=== PATIENT | male | born 1950 | race Caucasian/White ===

== ENCOUNTER 2017-09-18 20:53 | Inpatient (IN) | payer MEDICARE, OTHER ==
[2017-09-18 21:35] LABS: ADD MAN DIFF? NO
[2017-09-18] MEDS: SOD CHLORIDE 0.9% 500 ML IV (21:35)
[2017-09-18] MEDS: morphine 4 MG/ML VIAL IV (21:35)
[2017-09-18] MEDS: KETOROLAC 30 MG INJ IV (21:35)
[2017-09-18] MEDS: METHYLPREDNISOLONE 125 MG INJ IV (21:35)
[2017-09-18 21:36] LABS: BASOPHILS % 0.5 % (0.0-2.0); EOSINOPHILS # 0.4 10^3/ul (0.0-0.5); EOSINOPHILS % 6.9 % (0.0-7.0); HEMATOCRIT 46.9 % (42.0-52.0); HEMOGLOBIN 15.4 g/dl (14.0-18.0); LYMPHOCYTES # 1.9 10^3/ul (0.8-2.9); LYMPHOCYTES % 31.4 % (15.0-51.0); MEAN CORPUSCULAR HEMOGLOBIN 31.7 pg (29.0-33.0); MEAN CORPUSCULAR HGB CONC 32.8 g/dl (32.0-37.0); MEAN CORPUSCULAR VOLUME 96.5 fl (82.0-101.0); MEAN PLATELET VOLUME 9.8 fl (7.4-10.4); MONOCYTE # 0.3 10^3/ul (0.3-0.9); MONOCYTES % 4.4 % (0.0-11.0); NEUTROPHIL # 3.4 10^3/ul (1.6-7.5); NEUTROPHILS % 56.6 % (39.0-77.0); PLATELET COUNT 319 10^3/UL (140-415); RED BLOOD COUNT 4.86 10^6/ul (4.70-6.10); RED CELL DISTRIBUTION WIDTH 13.6 % (11.5-14.5)
[2017-09-18 21:53] LABS: ANION GAP 10 (8-16); BLOOD UREA NITROGEN 19 mg/dl (7-20); CALCIUM 9.4 mg/dl (8.4-10.2); CARBON DIOXIDE 30 mmol/L (21-31); CHLORIDE 107 mmol/L (97-110); CREATININE 1.08 mg/dl (0.61-1.24); GLUCOSE 103 mg/dl (70-220); POTASSIUM 3.6 mmol/L (3.5-5.1); SODIUM 143 mmol/L (135-144)
[2017-09-18] MEDS: HYDROmorphONE 0.5 MG/0.5 ML SYG IV ×2 (21:56→23:36)
[2017-09-18 22:05] LABS: TROPONIN-I < 0.010 ng/ml (0.000-0.120)
[2017-09-18 22:51] LABS: ADD UMIC YES; UR ASCORBIC ACID NEGATIVE (NEGATIVE); UR BACTERIA FEW /HPF (NONE SEEN); UR BILIRUBIN (Dip) NEGATIVE (NEGATIVE); UR BLOOD (Dip) 2+ mg/dL (NEGATIVE); UR CLARITY CLOUDY (CLEAR); UR COLOR YELLOW (YELLOW); UR GLUCOSE (Dip) NEGATIVE (NEGATIVE); UR HYALINE CAST FEW /HPF (NONE SEEN); UR KETONES (Dip) NEGATIVE (NEGATIVE); UR LEUKOCYTE ESTERASE (Dip) 3+ Leu/ul (NEGATIVE); UR MUCUS FEW /HPF (NONE SEEN); UR NITRITE (Dip) POSITIVE (NEGATIVE); UR RBC 56 /HPF (0-5); UR SPECIFIC GRAVITY (Dip) 1.014 (1.003-1.030); UR TOTAL PROTEIN (Dip) 1+ mg/dl (NEGATIVE); UR UROBILINOGEN (Dip) 2+ mg/dL (NEGATIVE); UR WBC 87 /HPF (0-5)
[2017-09-18] MEDS: CEFEPIME 1GM/50 ML (PMX) 50 ML IVPB (23:37)
[2017-09-19] MEDS ORDERED: ACETAMINOPHEN 325 MG TAB PO
[2017-09-19] MEDS ORDERED: NACL 0.9% 3 ML SYG IV
[2017-09-19] MEDS ORDERED: ALBUTEROL/IPRATROPIUM (NEB) 3 ML AMP HHN
[2017-09-19] MEDS ORDERED: ONDANSETRON 4 MG INJ IV
[2017-09-19] MEDS: morphine 2 MG INJ IV ×4 (00:55→18:02)
[2017-09-19] MEDS: HYDROCODONE/APAP (5/325) TAB PO ×2 (01:51→07:47)
[2017-09-19 05:44] LABS: WHITE BLOOD COUNT 4.5 10^3/ul (4.8-10.8)
[2017-09-19 05:44] LABS: HEMOGLOBIN 14.9 g/dl (14.0-18.0); MEAN CORPUSCULAR HEMOGLOBIN 31.6 pg (29.0-33.0); MEAN CORPUSCULAR HGB CONC 32.4 g/dl (32.0-37.0); MEAN CORPUSCULAR VOLUME 97.5 fl (82.0-101.0); PLATELET COUNT 295 10^3/UL (140-415); POSITIVE DIFF @See below; RED BLOOD COUNT 4.72 10^6/ul (4.70-6.10); RED CELL DISTRIBUTION WIDTH 13.4 % (11.5-14.5)
[2017-09-19 05:53] LABS: ADD MAN DIFF? YES
[2017-09-19 06:09] LABS: ALANINE AMINOTRANSFERASE 15 IU/L (13-69); ALBUMIN 3.5 g/dl (3.3-4.9); ALBUMIN/GLOBULIN RATIO 1.02; ALKALINE PHOSPHATASE 94 IU/L (42-121); ASPARTATE AMINO TRANSFERASE 15 IU/L (15-46); BILIRUBIN,INDIRECT 0.2 mg/dl (0-1.1); BILIRUBIN,TOTAL 0.2 mg/dl (0.2-1.3); BLOOD UREA NITROGEN 23 mg/dl (7-20); CALCIUM 9.2 mg/dl (8.4-10.2); CARBON DIOXIDE 26 mmol/L (21-31); CHLORIDE 110 mmol/L (97-110); CREATININE 1.09 mg/dl (0.61-1.24); GLUCOSE 148 mg/dl (70-220); MAGNESIUM 2.2 mg/dl (1.7-2.5); PHOSPHORUS 4.5 mg/dl (2.5-4.9); SODIUM 143 mmol/L (135-144); TOTAL PROTEIN 6.9 g/dl (6.1-8.1)
[2017-09-19 06:37] LABS: ANION GAP 11 (8-16)
[2017-09-19 06:40] LABS: POTASSIUM 4.3 mmol/L (3.5-5.1)
[2017-09-19 07:45] LABS: BAND NEUTROPHILS % (M) 1 % (0-4); LYMPHOCYTES #M 0.9 10^3/ul (0.8-2.9); LYMPHOCYTES % (M) 20 % (15-51); PLATELET ESTIMATE NORMAL; SEG NEUT #M 3.6 10^3/ul (1.6-7.5); SEGMENTED NEUTROPHILS (M) % 79 % (39-77)
[2017-09-19] MEDS: CEFTAZIDIME 1GM/50 ML (PMX) 50 ML IVPB (08:33)
[2017-09-19] MEDS: METHYLPREDNISOLONE 125 MG INJ IV (08:33)
[2017-09-19] MEDS: morphine LIQ (10 MG/5 ML) CUP PO (08:46)
[2017-09-19] MEDS: HYDROmorphONE 1 MG/ML SYG IV (11:15)
[2017-09-19] MEDS ORDERED: morphine LIQ (10 MG/5 ML) CUP PO (18:30)
== END 2017-09-19 19:15 | disposition home or self-care (01) | DRG 59 ==
LOC: E/R 20:53 → PP2 23:51
DX: G35 Multiple sclerosis (principal); N39.0 Urinary tract infection, site not specified; G83.9 Paralytic syndrome, unspecified
CPT/HCPCS: 36415; 70450; 71045; 80048; 80053; 81001; 83735; 84100; 84443; 84484; 85025; 87086; 93005; 96374; 96375; 96376; 99285-25

== ENCOUNTER 2017-09-24 16:05 | Emergency (ER) | payer MEDICARE ==
[2017-09-24] MEDS: HYDROmorphONE 1 MG/ML SYG IV (16:33)
[2017-09-24] MEDS: DIPHTH/TET/ACEL PERTUSS (ADULT) 0.5 ML VIAL IM* (16:33)
[2017-09-24 16:47] LABS: ADD MAN DIFF? NO
[2017-09-24 16:53] LABS: BASOPHILS % 0.3 % (0.0-2.0); EOSINOPHILS # 0.2 10^3/ul (0.0-0.5); EOSINOPHILS % 3.8 % (0.0-7.0); HEMATOCRIT 47.9 % (42.0-52.0); HEMOGLOBIN 15.2 g/dl (14.0-18.0); LYMPHOCYTES # 1.2 10^3/ul (0.8-2.9); MEAN CORPUSCULAR HEMOGLOBIN 31.1 pg (29.0-33.0); MEAN CORPUSCULAR HGB CONC 31.7 g/dl (32.0-37.0); MEAN PLATELET VOLUME 10.4 fl (7.4-10.4); MONOCYTE # 0.3 10^3/ul (0.3-0.9); MONOCYTES % 4.8 % (0.0-11.0); NEUTROPHIL # 4.3 10^3/ul (1.6-7.5); NEUTROPHILS % 70.8 % (39.0-77.0); PLATELET COUNT 258 10^3/UL (140-415); RED BLOOD COUNT 4.89 10^6/ul (4.70-6.10); RED CELL DISTRIBUTION WIDTH 13.5 % (11.5-14.5)
[2017-09-24 17:12] LABS: INR 0.94; PARTIAL THROMBOPLASTIN TIME 28.8 Sec (25.0-35.0); PROTIME 12.7 Sec (11.9-14.9)
[2017-09-24 17:16] LABS: ANION GAP 11 (8-16); BLOOD UREA NITROGEN 20 mg/dl (7-20); CALCIUM 9.6 mg/dl (8.4-10.2); CARBON DIOXIDE 29 mmol/L (21-31); CHLORIDE 103 mmol/L (97-110); CREATININE 0.98 mg/dl (0.61-1.24); GLUCOSE 114 mg/dl (70-220); POTASSIUM 3.4 mmol/L (3.5-5.1); SODIUM 140 mmol/L (135-144)
== END 2017-09-24 21:10 | disposition home or self-care (01) ==
LOC: E/R 21:10
DX: S43.402A Unspecified sprain of left shoulder joint, initial encounter (principal); S50.812A Abrasion of left forearm, initial encounter; S23.8XXA Sprain of other specified parts of thorax, initial encounter; I10 Essential (primary) hypertension; I50.9 Heart failure, unspecified; V00.831A Fall from motorized mobility scooter, initial encounter; Y92.9 Unspecified place or not applicable; Z87.891 Personal history of nicotine dependence; Z23 Encounter for immunization
CPT/HCPCS: 36415; 71045; 72170; 73030; 73080-LT; 73562; 80048; 85025; 85610; 85730; 90471; 90715; 96374; 99284-25

== ENCOUNTER 2017-10-15 03:36 | Inpatient (IN) | payer MEDICARE ==
[2017-10-15 03:54] LABS: AADO2 Arterial 117.2 mmHg (7.0-24.0); Allen Test ACCEPTAB; Arterial Base Excess -0.1 mmol/L (-3.0-3); Arterial Blood Gas Oxygen Sat 95.6 mmHG (95.0-98.0); Arterial COHb 4.3 % (0.0-3.0); Arterial Fraction of Oxyhgb 91.2 % (93.0-99.0); Arterial HCO3 24.2 mmol/L (22.0-26.0); Arterial MetHb 0.3 % (0.0-1.5); Arterial Total Hemglobin 16.8 g/dl (12.0-18.0); Arterial pCO2 38.5 mmhg (35-45); MODE NASAL CANNULA; Site Left Radial
[2017-10-15 04:00] LABS: ADD MAN DIFF? NO
[2017-10-15 04:05] LABS: BASOPHIL # 0.1 10^3/ul (0.0-0.1); BASOPHILS % 0.6 % (0.0-2.0); EOSINOPHILS # 0.3 10^3/ul (0.0-0.5); EOSINOPHILS % 3.8 % (0.0-7.0); HEMATOCRIT 49.6 % (42.0-52.0); HEMOGLOBIN 16.2 g/dl (14.0-18.0); LYMPHOCYTES # 2.7 10^3/ul (0.8-2.9); LYMPHOCYTES % 33.5 % (15.0-51.0); MEAN CORPUSCULAR HEMOGLOBIN 31.1 pg (29.0-33.0); MEAN CORPUSCULAR HGB CONC 32.7 g/dl (32.0-37.0); MEAN CORPUSCULAR VOLUME 95.2 fl (82.0-101.0); MEAN PLATELET VOLUME 9.7 fl (7.4-10.4); MONOCYTE # 0.4 10^3/ul (0.3-0.9); MONOCYTES % 4.7 % (0.0-11.0); NEUTROPHIL # 4.5 10^3/ul (1.6-7.5); PLATELET COUNT 356 10^3/UL (140-415); RED BLOOD COUNT 5.21 10^6/ul (4.70-6.10)
[2017-10-15] MEDS: HYDROmorphONE 0.5 MG/0.5 ML SYG IV ×2 (04:19→04:53)
[2017-10-15 04:20] LABS: INR 1.02; PROTIME 13.5 Sec (11.9-14.9); PT RATIO 1.1
[2017-10-15 04:21] LABS: LACTIC ACID 0.9 mmol/L (0.5-2.0)
[2017-10-15 04:22] LABS: ALANINE AMINOTRANSFERASE 25 IU/L (13-69); ALBUMIN 3.4 g/dl (3.3-4.9); ALKALINE PHOSPHATASE 118 IU/L (42-121); ANION GAP 12 (8-16); ASPARTATE AMINO TRANSFERASE 15 IU/L (15-46); BILIRUBIN,INDIRECT 0.4 mg/dl (0-1.1); BILIRUBIN,TOTAL 0.4 mg/dl (0.2-1.3); BLOOD UREA NITROGEN 13 mg/dl (7-20); CALCIUM 9.1 mg/dl (8.4-10.2); CARBON DIOXIDE 24 mmol/L (21-31); CHLORIDE 112 mmol/L (97-110); CREATININE 0.95 mg/dl (0.61-1.24); GLUCOSE 97 mg/dl (70-220); POTASSIUM 3.8 mmol/L (3.5-5.1); SODIUM 144 mmol/L (135-144); TOTAL PROTEIN 6.8 g/dl (6.1-8.1)
[2017-10-15 04:33] LABS: TROPONIN-I < 0.010 ng/ml (0.000-0.120)
[2017-10-15 05:29] LABS: ADD UMIC YES; UR ASCORBIC ACID NEGATIVE (NEGATIVE); UR BACTERIA FEW /HPF (NONE SEEN); UR BILIRUBIN (Dip) NEGATIVE (NEGATIVE); UR BLOOD (Dip) 2+ mg/dL (NEGATIVE); UR CLARITY TURBID (CLEAR); UR COLOR YELLOW (YELLOW); UR GLUCOSE (Dip) NEGATIVE (NEGATIVE); UR KETONES (Dip) NEGATIVE (NEGATIVE); UR LEUKOCYTE ESTERASE (Dip) 3+ Leu/ul (NEGATIVE); UR MUCUS MODERATE /HPF (NONE SEEN); UR NITRITE (Dip) POSITIVE (NEGATIVE); UR NONSQUAMOUS EPITHELIAL CELL 3 /HPF (NONE SEEN); UR RBC 22 /HPF (0-5); UR SPECIFIC GRAVITY (Dip) 1.011 (1.003-1.030); UR TOTAL PROTEIN (Dip) 1+ mg/dl (NEGATIVE); UR UROBILINOGEN (Dip) NEGATIVE (NEGATIVE); UR WBC > 182 /HPF (0-5)
[2017-10-15] MEDS: PIPER-TAZO 3.375 GM IV (PMX) 100 ML IVPB (06:00)
[2017-10-15 06:04] LABS: URINE BLOOD (Dip) POC 2+ (NEGATIVE); URINE GLUCOSE (Dip) POC Negative (NEGATIVE); URINE KETONES (Dip) POC Negative (NEGATIVE); URINE LEUKOCYTE EST (Dip) POC Trace (NEGATIVE); URINE NITRITE (Dip) POC Positive (NEGATIVE); URINE TOTAL PROTEIN POC 3+ (NEGATIVE)
[2017-10-15 06:28] LABS: LACTIC ACID 1.1 mmol/L (0.5-2.0)
[2017-10-15] MEDS ORDERED: NACL 0.9% 3 ML SYG IV (11:30)
[2017-10-15] MEDS ORDERED: ALBUTEROL 0.083% (NEB) 2.5 MG/3 ML AMP HHN (12:00)
[2017-10-15] MEDS: ONDANSETRON 4 MG INJ IV (13:44)
[2017-10-15] MEDS: morphine 2 MG INJ IV ×2 (13:48→17:49)
[2017-10-15] MEDS ORDERED: NAPROXEN 500 MG TAB PO (20:00)
[2017-10-15] MEDS: MIRTAZAPINE 15 MG TAB PO (21:00)
[2017-10-15] MEDS: DOCUSATE SODIUM 250 MG CAP PO (21:00)
[2017-10-15] MEDS: BACLOFEN 10 MG TAB PO (21:00)
[2017-10-15] MEDS: DIAZEPAM 5 MG TAB PO (21:00)
[2017-10-15] MEDS: GABAPENTIN 300 MG CAP PO (21:01)
[2017-10-15] MEDS: TAMSULOSIN (SR) 0.4 MG CAP PO (21:01)
[2017-10-15] MEDS: HYDROmorphONE 4 MG TAB PO (23:45)
[2017-10-16] MEDS: HYDROmorphONE 4 MG TAB PO ×3 (06:06→15:08)
[2017-10-16] MEDS: DOCUSATE SODIUM 250 MG CAP PO ×2 (09:01→21:42)
[2017-10-16] MEDS: GABAPENTIN 300 MG CAP PO ×3 (09:01→21:42)
[2017-10-16] MEDS: FOLIC ACID 1 MG TAB PO (09:01)
[2017-10-16] MEDS: BACLOFEN 10 MG TAB PO ×4 (09:01→21:42)
[2017-10-16] MEDS: DIAZEPAM 5 MG TAB PO ×2 (09:01→21:46)
[2017-10-16] MEDS: FUROSEMIDE 20 MG TAB PO (09:02)
[2017-10-16] MEDS: TAMSULOSIN (SR) 0.4 MG CAP PO (21:42)
[2017-10-16] MEDS: MIRTAZAPINE 15 MG TAB PO (21:42)
[2017-10-17] MEDS: BACLOFEN 10 MG TAB PO ×4 (08:07→20:21)
[2017-10-17] MEDS: GABAPENTIN 300 MG CAP PO ×3 (08:07→20:20)
[2017-10-17] MEDS: DIAZEPAM 5 MG TAB PO ×2 (08:08→20:21)
[2017-10-17] MEDS: FOLIC ACID 1 MG TAB PO (08:08)
[2017-10-17] MEDS: DOCUSATE SODIUM 250 MG CAP PO ×2 (08:08→20:20)
[2017-10-17] MEDS: FUROSEMIDE 20 MG TAB PO (08:08)
[2017-10-17 11:10] LABS: ADD MAN DIFF? NO
[2017-10-17 11:13] LABS: BASOPHILS % 0.6 % (0.0-2.0); EOSINOPHILS # 0.1 10^3/ul (0.0-0.5); EOSINOPHILS % 2.6 % (0.0-7.0); HEMATOCRIT 44.5 % (42.0-52.0); HEMOGLOBIN 14.2 g/dl (14.0-18.0); LYMPHOCYTES % 39.4 % (15.0-51.0); MEAN CORPUSCULAR HEMOGLOBIN 30.5 pg (29.0-33.0); MEAN CORPUSCULAR HGB CONC 31.9 g/dl (32.0-37.0); MEAN CORPUSCULAR VOLUME 95.7 fl (82.0-101.0); MEAN PLATELET VOLUME 9.8 fl (7.4-10.4); MONOCYTE # 0.2 10^3/ul (0.3-0.9); MONOCYTES % 4.8 % (0.0-11.0); NEUTROPHIL # 2.6 10^3/ul (1.6-7.5); NEUTROPHILS % 52.4 % (39.0-77.0); PLATELET COUNT 290 10^3/UL (140-415); RED BLOOD COUNT 4.65 10^6/ul (4.70-6.10); RED CELL DISTRIBUTION WIDTH 13.9 % (11.5-14.5)
[2017-10-17 11:34] LABS: ANION GAP 10 (8-16); BLOOD UREA NITROGEN 16 mg/dl (7-20); CALCIUM 8.9 mg/dl (8.4-10.2); CARBON DIOXIDE 24 mmol/L (21-31); CHLORIDE 113 mmol/L (97-110); CREATININE 0.84 mg/dl (0.61-1.24); GLUCOSE 100 mg/dl (70-220); POTASSIUM 3.7 mmol/L (3.5-5.1); SODIUM 143 mmol/L (135-144)
[2017-10-17] MEDS: CEFTRIAXONE 1 GM/50 ML (PMX) 50 ML IVPB (12:52)
[2017-10-17] MEDS: HYDROmorphONE 4 MG TAB PO ×2 (14:58→22:57)
[2017-10-17] MEDS: MIRTAZAPINE 15 MG TAB PO (20:21)
[2017-10-17] MEDS: TAMSULOSIN (SR) 0.4 MG CAP PO (20:21)
[2017-10-18] MEDS: HYDROmorphONE 4 MG TAB PO ×2 (05:54→16:29)
[2017-10-18 07:30] LABS: ADD MAN DIFF? NO
[2017-10-18 07:44] LABS: WHITE BLOOD COUNT 5.2 10^3/ul (4.8-10.8)
[2017-10-18 07:44] LABS: BASOPHILS % 0.6 % (0.0-2.0); EOSINOPHILS # 0.1 10^3/ul (0.0-0.5); EOSINOPHILS % 1.9 % (0.0-7.0); HEMATOCRIT 44.3 % (42.0-52.0); LYMPHOCYTES # 2.1 10^3/ul (0.8-2.9); LYMPHOCYTES % 39.4 % (15.0-51.0); MEAN CORPUSCULAR HEMOGLOBIN 30.8 pg (29.0-33.0); MEAN CORPUSCULAR HGB CONC 31.6 g/dl (32.0-37.0); MEAN CORPUSCULAR VOLUME 97.6 fl (82.0-101.0); MEAN PLATELET VOLUME 9.8 fl (7.4-10.4); MONOCYTE # 0.3 10^3/ul (0.3-0.9); MONOCYTES % 5.6 % (0.0-11.0); NEUTROPHIL # 2.7 10^3/ul (1.6-7.5); NEUTROPHILS % 52.3 % (39.0-77.0); PLATELET COUNT 287 10^3/UL (140-415); RED BLOOD COUNT 4.54 10^6/ul (4.70-6.10); RED CELL DISTRIBUTION WIDTH 13.7 % (11.5-14.5)
[2017-10-18 08:04] LABS: ANION GAP 13 (8-16); BLOOD UREA NITROGEN 13 mg/dl (7-20); CARBON DIOXIDE 27 mmol/L (21-31); CHLORIDE 108 mmol/L (97-110); GLUCOSE 91 mg/dl (70-220); POTASSIUM 3.6 mmol/L (3.5-5.1); SODIUM 144 mmol/L (135-144)
[2017-10-18] MEDS: GABAPENTIN 300 MG CAP PO ×3 (08:08→20:30)
[2017-10-18] MEDS: DOCUSATE SODIUM 250 MG CAP PO ×2 (08:09→20:30)
[2017-10-18] MEDS: ZINC SULFATE 220 MG CAP NGT (08:09)
[2017-10-18] MEDS: ASCORBIC ACID 500 MG TAB PO (08:09)
[2017-10-18] MEDS: FUROSEMIDE 20 MG TAB PO (08:09)
[2017-10-18] MEDS: FOLIC ACID 1 MG TAB PO (08:09)
[2017-10-18] MEDS: DIAZEPAM 5 MG TAB PO ×2 (08:10→20:31)
[2017-10-18] MEDS: BACLOFEN 10 MG TAB PO ×4 (08:10→20:30)
[2017-10-18] MEDS: CEFTRIAXONE 1 GM/50 ML (PMX) 50 ML IVPB (12:07)
[2017-10-18] MEDS: COLLAGENASE 5 GM (UD JAR) TOP (16:27)
[2017-10-18] MEDS: MIRTAZAPINE 15 MG TAB PO (20:30)
[2017-10-18] MEDS: TAMSULOSIN (SR) 0.4 MG CAP PO (20:30)
[2017-10-19] MEDS: HYDROmorphONE 4 MG TAB PO ×3 (01:11→20:17)
[2017-10-19] MEDS: ACETAMINOPHEN 325 MG TAB PO (03:45)
[2017-10-19 06:44] LABS: ADD MAN DIFF? NO
[2017-10-19 06:50] LABS: BASOPHILS % 0.5 % (0.0-2.0); EOSINOPHILS # 0.1 10^3/ul (0.0-0.5); HEMATOCRIT 41.8 % (42.0-52.0); HEMOGLOBIN 13.8 g/dl (14.0-18.0); LYMPHOCYTES # 2.4 10^3/ul (0.8-2.9); LYMPHOCYTES % 44.4 % (15.0-51.0); MEAN CORPUSCULAR HEMOGLOBIN 31.7 pg (29.0-33.0); MEAN CORPUSCULAR VOLUME 96.1 fl (82.0-101.0); MEAN PLATELET VOLUME 9.8 fl (7.4-10.4); MONOCYTE # 0.3 10^3/ul (0.3-0.9); MONOCYTES % 5.6 % (0.0-11.0); NEUTROPHIL # 2.6 10^3/ul (1.6-7.5); NEUTROPHILS % 47.3 % (39.0-77.0); PLATELET COUNT 293 10^3/UL (140-415); RED BLOOD COUNT 4.35 10^6/ul (4.70-6.10); RED CELL DISTRIBUTION WIDTH 13.3 % (11.5-14.5)
[2017-10-19 06:50] LABS: WHITE BLOOD COUNT 5.5 10^3/ul (4.8-10.8)
[2017-10-19 07:27] LABS: ANION GAP 8 (8-16); BLOOD UREA NITROGEN 10 mg/dl (7-20); CALCIUM 8.8 mg/dl (8.4-10.2); CARBON DIOXIDE 25 mmol/L (21-31); CHLORIDE 114 mmol/L (97-110); CREATININE 0.76 mg/dl (0.61-1.24); GLUCOSE 93 mg/dl (70-220); POTASSIUM 3.5 mmol/L (3.5-5.1); SODIUM 143 mmol/L (135-144)
[2017-10-19] MEDS: DIAZEPAM 5 MG TAB PO ×2 (08:41→20:22)
[2017-10-19] MEDS: FUROSEMIDE 20 MG TAB PO (08:41)
[2017-10-19] MEDS: ASCORBIC ACID 500 MG TAB PO (08:41)
[2017-10-19] MEDS: GABAPENTIN 300 MG CAP PO ×3 (08:41→20:17)
[2017-10-19] MEDS: ZINC SULFATE 220 MG CAP NGT (08:41)
[2017-10-19] MEDS: DOCUSATE SODIUM 250 MG CAP PO ×2 (08:41→20:17)
[2017-10-19] MEDS: FOLIC ACID 1 MG TAB PO (08:42)
[2017-10-19] MEDS: BACLOFEN 10 MG TAB PO ×4 (08:42→20:17)
[2017-10-19] MEDS: COLLAGENASE 5 GM (UD JAR) TOP (08:44)
[2017-10-19] MEDS: HYDROmorphONE 1 MG/ML SYG IV ×3 (12:01→22:08)
[2017-10-19] MEDS: CEFTRIAXONE 1 GM/50 ML (PMX) 50 ML IVPB (12:01)
[2017-10-19] MEDS: ENOXAPARIN 40 MG/0.4 ML SYG SC (15:52)
[2017-10-19] MEDS: MIRTAZAPINE 15 MG TAB PO (20:17)
[2017-10-19] MEDS: TAMSULOSIN (SR) 0.4 MG CAP PO (20:17)
[2017-10-20] MEDS: HYDROmorphONE 1 MG/ML SYG IV ×3 (06:38→22:46)
[2017-10-20] MEDS: morphine LIQ (10 MG/5 ML) CUP PO ×2 (08:43→17:52)
[2017-10-20] MEDS: ZINC SULFATE 220 MG CAP NGT (09:27)
[2017-10-20] MEDS: DOCUSATE SODIUM 250 MG CAP PO ×2 (09:27→21:20)
[2017-10-20] MEDS: ASCORBIC ACID 500 MG TAB PO (09:28)
[2017-10-20] MEDS: ENOXAPARIN 40 MG/0.4 ML SYG SC (09:28)
[2017-10-20] MEDS: FOLIC ACID 1 MG TAB PO (09:28)
[2017-10-20] MEDS: BACLOFEN 10 MG TAB PO ×4 (09:28→21:20)
[2017-10-20] MEDS: DIAZEPAM 5 MG TAB PO ×2 (09:29→21:20)
[2017-10-20] MEDS: GABAPENTIN 300 MG CAP PO ×3 (09:29→21:21)
[2017-10-20] MEDS: FUROSEMIDE 20 MG TAB PO (09:29)
[2017-10-20] MEDS: COLLAGENASE 5 GM (UD JAR) TOP (11:20)
[2017-10-20] MEDS: CEFTRIAXONE 1 GM/50 ML (PMX) 50 ML IVPB (14:06)
[2017-10-20] MEDS: HYDROmorphONE 0.5 MG/0.5 ML SYG IV (14:51)
[2017-10-20] MEDS: MIRTAZAPINE 15 MG TAB PO (21:20)
[2017-10-20] MEDS: TAMSULOSIN (SR) 0.4 MG CAP PO (21:20)
[2017-10-21] MEDS: HYDROmorphONE 1 MG/ML SYG IV ×4 (04:00→17:30)
[2017-10-21 05:47] LABS: ADD MAN DIFF? NO
[2017-10-21 05:48] LABS: BASOPHILS % 0.8 % (0.0-2.0); EOSINOPHILS # 0.1 10^3/ul (0.0-0.5); EOSINOPHILS % 2.7 % (0.0-7.0); HEMATOCRIT 42.7 % (42.0-52.0); LYMPHOCYTES # 2.4 10^3/ul (0.8-2.9); LYMPHOCYTES % 46.2 % (15.0-51.0); MEAN CORPUSCULAR HGB CONC 32.8 g/dl (32.0-37.0); MEAN CORPUSCULAR VOLUME 97.5 fl (82.0-101.0); MEAN PLATELET VOLUME 9.9 fl (7.4-10.4); MONOCYTE # 0.2 10^3/ul (0.3-0.9); MONOCYTES % 4.6 % (0.0-11.0); NEUTROPHIL # 2.4 10^3/ul (1.6-7.5); NEUTROPHILS % 45.5 % (39.0-77.0); PLATELET COUNT 275 10^3/UL (140-415); RED BLOOD COUNT 4.38 10^6/ul (4.70-6.10); RED CELL DISTRIBUTION WIDTH 13.7 % (11.5-14.5)
[2017-10-21 05:48] LABS: WHITE BLOOD COUNT 5.3 10^3/ul (4.8-10.8)
[2017-10-21 06:33] LABS: ANION GAP 11 (8-16); BLOOD UREA NITROGEN 15 mg/dl (7-20); CALCIUM 9.1 mg/dl (8.4-10.2); CARBON DIOXIDE 25 mmol/L (21-31); CHLORIDE 112 mmol/L (97-110); CREATININE 0.79 mg/dl (0.61-1.24); GLUCOSE 94 mg/dl (70-220); POTASSIUM 3.6 mmol/L (3.5-5.1); SODIUM 144 mmol/L (135-144)
[2017-10-21] MEDS: ZINC SULFATE 220 MG CAP NGT (08:51)
[2017-10-21] MEDS: GABAPENTIN 300 MG CAP PO ×3 (08:51→20:51)
[2017-10-21] MEDS: DOCUSATE SODIUM 250 MG CAP PO ×2 (08:51→20:52)
[2017-10-21] MEDS: BACLOFEN 10 MG TAB PO ×4 (08:51→20:54)
[2017-10-21] MEDS: DIAZEPAM 5 MG TAB PO ×2 (08:51→20:53)
[2017-10-21] MEDS: FOLIC ACID 1 MG TAB PO (08:51)
[2017-10-21] MEDS: COLLAGENASE 5 GM (UD JAR) TOP (08:51)
[2017-10-21] MEDS: FUROSEMIDE 20 MG TAB PO (08:52)
[2017-10-21] MEDS: ASCORBIC ACID 500 MG TAB PO (08:52)
[2017-10-21] MEDS: ENOXAPARIN 40 MG/0.4 ML SYG SC (08:55)
[2017-10-21] MEDS ORDERED: VITAMIN A & D 5 GM OINT PACKET TOP (09:57)
[2017-10-21] MEDS: CEFTRIAXONE 1 GM/50 ML (PMX) 50 ML IVPB (13:10)
[2017-10-21] MEDS: morphine LIQ (10 MG/5 ML) CUP PO ×2 (16:11→20:56)
[2017-10-21] MEDS: MIRTAZAPINE 15 MG TAB PO (20:53)
[2017-10-21] MEDS: TAMSULOSIN (SR) 0.4 MG CAP PO (20:54)
== END 2017-10-21 22:50 | DRG 189 ==
LOC: E/R 03:36 → MS2 10-19 23:00 → E/R 14:26 → TEL 05:49
DX: J96.00 Acute respiratory failure, unspecified whether with hypoxia or hypercapnia (principal); L89.153 Pressure ulcer of sacral region, stage 3; J18.9 Pneumonia, unspecified organism; N39.0 Urinary tract infection, site not specified; R78.81 Bacteremia; R06.02 Shortness of breath; G35 Multiple sclerosis; M79.662 Pain in left lower leg; Z74.01 Bed confinement status; N40.0 Benign prostatic hyperplasia without lower urinary tract symptoms; Z66 Do not resuscitate; L89.152 Pressure ulcer of sacral region, stage 2; B96.89 Other specified bacterial agents as the cause of diseases classified elsewhere
CPT/HCPCS: 36415; 36600; 71045; 80048; 80053; 81001; 81003; 82803; 83605; 84484; 85025; 85610; 85730; 87040; 87086; 93005; 93970; 96374; 96376; 99285-25; G0378